=== PATIENT | male | born 1965 | race African-American/Black ===

== ENCOUNTER 2024-06-10 11:45 | Emergency (ER) | payer MEDICAID, OTHER ==
[~2024-06-10] VITALS: Ht 177.8 cm; Wt 72.7 kg
--- NOTE | 2024-06-10 12:33 | ED.PDOC ---
GI ASSESSMENT HPI Comments 58-year-old male presents with a chief complaint of abdominal pain x 4 days with associated constipation. Patients brother mentions that patient has a history of constipation and had a bowel movement yesterday but it was a small amount. Patient denies any nausea and vomiting. Patient mentions that his abdominal pain is nonspecific. Patient is poor historian with history of dementia. Patient is visiting from [place]. Family is at bedside. PMHx: Dementia, Depression, Agitation PSHx: None Reported Allergies: None Reported HPI: Poor Historian. REVIEW OF SYSTEMS: CONSTITUTIONAL: Denies acute: fever, diaphoresis, chills, HEAD: Denies acute: headache, photophobia Eyes: Denies acute: Double vision, vision loss, eye pain, eye discharge. EARS: Denies acute: tinnitus, hearing loss, ear discharge, ear pain, THROAT: Denies acute: sore throat, swelling, difficulty swallowing , pain with swallowing, change in voice. NECK: Denies acute: neck pain, neck swelling, stiff neck. HEART: Denies acute : chest pain, palpitations, LUNGS: Denies acute: SOB, wheezing, cough, hemoptysis ABDOMEN: Denies acute: Nausea, Vomiting, diarrhea, melena , hematemesis, hematochezia SKIN: Denies acute: rash, redness, lesions, itchiness. EXTREMITIES: Denies acute: calf pain, numbness, tingling, weakness, denies pain in extremity. Denies acute: Low back pain. Neuro: Denies acute: focal neurological deficit, motor or sensory focal neurological deficit, tremors, seizure like activity, confusion, dizziness, change in mental status, loss of bowel or bladder function, cauda equina like symptoms. : Denies acute: dysuria, hematuria, flank pain, increase in urinary frequency. PSYCH: Denies acute: hallucination, suicidal ideation, homicidal ideation. PHYSICAL EXAM: General: ---no-----acute distress, awake and alert. Head: normocephalic, atraumatic. Neck: supple, trachea is midline, no swelling. Throat: Normal phonation. Eyes:, no erythema, no purulent discharge, no proptosis, no icterus. Heart: regular rate, regular rhythm, no significant murmur appreciated. Lungs: no apparent respiratory distress, Able to speak in full sentences. No wheezing, no rhonchi, no crackles. No stridors Clear to auscultation bilaterally. Abdomen: Minimal nonspecific upper abdomen tender to palpation, non distended, soft, no guarding, no rebound, + bowel sounds. Neuro: Awake, Alert, oriented to name, self, situation, follows commands GCS=15. Speech is normal. Skin: no petechia, no purpura, no cyanosis, non-pale, not jaundice. Lower extremities: --no - Pitting edema no deformity, no focal swelling, no calf TTP. Makes eye contact. moves all four extremities. Face: no apparent facial droop. ED COURSE: Chief Complaint: Abdominal Pain Time Seen by MD: 12:10 Reviewed Notes: Nurses Notes, Medications, Allergies Information Source: Patient, Friend Mode of Arrival: Ambulatory Past Medical History PAST MEDICAL HISTORY: Dementia, Depression Surgical History: Denies all surgeries Family History Family History: Reviewed,noncontributory to illness Social History Smoker: Non-Smoker Alcohol: Denies ETOH Use Drugs: Denies Drug Use Lives In: Home Was a procedure done? Was a procedure done?: No GI differential Dx Differential Diagnosis: Other (DDX include Diverticulitis, colitis, gastroenteritis, acute abdomen, bowel obstruction, enteritis, constipation, volvulus, , intraAbdominal mass/neoplasm, Inflammatory bowel disease, ischemic bowel, gastroparesis, narcotics abuse/dependency, fecal impaction, low fiber intake.) X-Ray, Labs, Meds, VS Vital Signs Date Time Temp Pulse Resp B/P (MAP) Pulse Ox O2 Delivery O2 Flow Rate FiO2 06/10/24 18:20 98.7 72 16 130/76 (94) 96 98.7 06/10/24 12:11 98.7 86 18 126/53 (77) 99 98.7 Lab Test 06/10/24 15:51 06/10/24 14:09 06/10/24 12:59 Range/Units Troponin I High Sensitivity < 3 L < 3 L < 3 L </=54 ng/L White Blood Count 5.7 4.4-10.8 10^3/uL Red Blood Count 3.20 L 4.5-5.90 10^6/uL Hemoglobin 10.4 L 13.5-17.5 g/dL Hematocrit 30.9 L 41.0-53.0 % Mean Corpuscular Volume 96.6 80.0-100.0 fL Mean Corpuscular Hemoglobin 32.4 H 28.0-32.0 pg Mean Corpuscular Hemoglobin Concent 33.5 32.0-36.0 g/dL Red Cell Distribution Width 14.0 11.8-14.3 % Platelet Count 237 140-450 10^3/uL Mean Platelet Volume 6.5 L 6.9-10.8 fL Neutrophils (%) (Auto) 57.7 37.0-80.0 % Lymphocytes (%) (Auto) 27.7 10.0-50.0 % Monocytes (%) (Auto) 13.4 H 0.0-12.0 % Eosinophils (%) (Auto) 0.7 0.0-7.0 % Basophils (%) (Auto) 0.5 0.0-2.0 % Neutrophils # (Auto) 3.3 1.6-8.6 10 ^3/uL Lymphocytes # (Auto) 1.6 0.4-5.4 10 ^3/uL Monocytes # (Auto) 0.8 0-1.3 10 ^3/uL Eosinophils # (Auto) 0 0-0.8 10 ^3/uL Basophils # (Auto) 0 0-0.2 10 ^3/uL Nucleated Red Blood Cells 0.1 % Sodium Level 141 136-145 mmol/L Potassium Level 4.0 3.5-5.1 mmol/L Chloride Level 109 H 98-107 mmol/L Carbon Dioxide Level 27 20-31 mmol/L Anion Gap 5 5-15 Blood Urea Nitrogen 14 9-23 mg/dL Creatinine 0.99 0.700-1.30 mg/dL Glomerular Filtration Rate Calc 87 >90 mL/min BUN/Creatinine Ratio 14.1 10.0-20.0 Serum Glucose 87 74-106 mg/dL Lactic Acid Level 1.0 0.4-2.0 mmol/L Calcium Level 9.6 8.7-10.4 mg/dL Total Bilirubin 0.4 0.2-1.0 mg/dL Aspartate Amino Transferase (AST) 17 13-40 U/L Alanine Aminotransferase (ALT) 27 7-40 U/L Alkaline Phosphatase 70 46-116 U/L Total Protein 7.1 5.7-8.2 g/dL Albumin 3.8 3.2-4.8 g/dL Lipase 33 12-53 U/L PATIENT: NATHALIA BANSALT: [id number]: [id number] : 1965 LOC: ER ROOM / BED: / AGE / SEX: 58 / M ADM STATUS: REG ER SERVICE 1213 ORDERING PHYSICIAN: MARA NUNEZ DO PROCEDURE(s): ABPL - CT AB PEL WO CON-NO ORAL OR IV REASON: ABD PAIN ORDER NUMBER(s): [id number], ACCESSION NUMBER(s): [id number] Exam: CT CT AB PEL WO CON-NO ORAL OR IV History: ABD PAIN Comparison Study: None available at time of dictation. Technique: Multidetector spiral CT of the abdomen and pelvis was performed from lung bases to pubic symphysis. Imaging was performed without intravenous contrast. Coronal and sagittal multiplanar reformats were obtained from the axial data set by the technologist. Radiation Dose : 1. Abdomen/Pelvis: CTDIvol 5.9 mGy, DLP 308.66 mGy*cm. Findings: Evaluation of vasculature and solid organs is limited due to lack of intravenous contrast use. Lung Bases: Lung bases are clear. Visualized portions of the heart and pericardium are unremarkable. Liver: The liver is normal in size. No focal lesions. Gallbladder and Biliary Tree: The gallbladder is unremarkable No intrahepatic or extrahepatic biliary ductal dilatation. Spleen: Unremarkable Pancreas: The pancreas is grossly unremarkable. Adrenal Glands: Unremarkable Kidneys: Kidneys are unremarkable without calculi or hydronephrosis. GI tract: The stomach is grossly normal in appearance. No evidence of small bowel wall thickening or abnormal dilatation to suggest bowel obstruction. Wall thickening in the rectum with fat stranding. Otherwise there is scattered stool throughout the rest of the colon. The appendix is not visualized, however no inflammatory changes in the right lower quadrant to suggest acute appendicitis. Peritoneum/mesentery/retroperitoneum. No evidence of free intraperitoneal air. N o ascites. No evidence of suspicious lymphadenopathy. Abdominal Wall: Unremarkable. Vasculature: The visualized abdominal aorta is normal in size and caliber. Evaluation of abdominal and pelvic vessels is limited due to lack of intravenous contrast. Urinary Bladder: Grossly unremarkable for degree of distention. Pelvic Organs: Unremarkable Musculoskeletal: No aggressive focal bony lesions, acute fractures or dislocation. Soft tissues: Fat containing left inguinal hernia with fat stranding. IMPRESSION: 1. Wall thickening of the rectum with fat stranding. Findings may reflect proctitis in the appropriate clinical setting. 2. Fat containing left inguinal hernia. Mild fat stranding of the left inguinal hernia. Correlation with patient's symptoms recommended. ATED BY: MARILYN ETIENNE MD DICTATED DATE/TIME: 06/10/241310 SIGNED BY: MARILYN ETIENNE MD SIGNED DATE/TIME: 06/10/241310 Time of 1ST Reevaluation: 12:40 Reevaluation 1ST: Unchanged Time of 2ND Reevaluation: 17:23 (Family/caregivers said that the patient has urinary incontinence. They refused any straight catheterization to obtain urine. They said he already urinated a lot.) Reevaluation 2ND: Improved Patient Education/Counseling: Diagnosis, Treatment Family Education/Counseling: Diagnosis, Treatment Comments Patient presented with the above HPI.---constipation---workup was initiated. patient was found with the above mentioned diagnosis. the following medications were ordered: please refer to order lists of meds and tests obtained by myself Dr. Nunez. Patient ED course and VS have been stabilized. Patient has been reassessed in the ED and remained in a stable condition. Pertinent incidental findings were discussed with the patient and/or family. Patient/family voices understanding and is agreeable with plan. Patient has been observed in the ED adequate length of time to insure improvement/stability. Escalation of care considered: Consideration of escalation to observation or admission Patient was DISCHARGED home in a stable condition. All the reports of any imaging studies that were ordered by myself were reviewed by myself. Departure 1 Departure Time of Disposition: 15:48 Impression: Primary Impression: Abdominal pain Additional Impressions: Proctitis Inguinal hernia Constipation Disposition: HOME / SELF CARE / HOMELESS Condition: Stable Additional Instructions: Additional instructions: You MUST follow-up with your primary care/family doctor in 1 to 2 days. If you are unable to see your primary care/family doctor, please return to our emergency room for re-assessment and re-evaluation in 1 to 2 days. Return to the emergency room here in our facility or to the nearest ER [facility] if your symptoms change or worsen. CONSULTATIONS: you MUST Follow-up for consultation as soon as possible with: -gastroenterology in 1-2 days. Please call for appointment. You MUST call the consultants office yourself to make an appointment. You may need to arrange that through your insurance and/or your primary/family doctor. If you are unable to see the financial services education consultant in 1 to 2 days, you must return to our emergency room (or any other ER of your choice) for re-assessment and re- evaluation. Adequate fluid hydration. Liquid diet in the next 72 hours. Increase fiber intake. Below is a copy of your radiological report for follow up: PATIENT: NATHALIA BANSAL ACCT: [id number] UNIT: [id number] : 1965 LOC: ER ROOM / BED: / AGE / SEX: 58 / M ADM STATUS: REG ER SERVICE 1213 ORDERING PHYSICIAN: MARA NUNEZ DO PROCEDURE(s): ABPL - CT AB PEL WO CON-NO ORAL OR IV REASON: ABD PAIN ORDER NUMBER(s): [id number], ACCESSION NUMBER(s): [id number] Exam: CT CT AB PEL WO CON-NO ORAL OR IV History: ABD PAIN Comparison Study: None available at time of dictation. Technique: Multidetector spiral CT of the abdomen and pelvis was performed from lung bases to pubic symphysis. Imaging was performed without intravenous contrast. Coronal and sagittal multiplanar reformats were obtained from the axial data set by the technologist. Radiation Dose : 1. Abdomen/Pelvis: CTDIvol 5.9 mGy, DLP 308.66 mGy*cm. Findings: Evaluation of vasculature and solid organs is limited due to lack of intravenous contrast use. Lung Bases: Lung bases are clear. Visualized portions of the heart and pericardium are unremarkable. Liver: The liver is normal in size. No focal lesions. Gallbladder and Biliary Tree: The gallbladder is unremarkable No intrahepatic or extrahepatic biliary ductal dilatation. Spleen: Unremarkable Pancreas: The pancreas is grossly unremarkable. Adrenal Glands: Unremarkable Kidneys: Kidneys are unremarkable without calculi or hydronephrosis. GI tract: The stomach is grossly normal in appearance. No evidence of small bowel wall thickening or abnormal dilatation to suggest bowel obstruction. Wall thickening in the rectum with fat stranding. Otherwise there is scattered stool throughout the rest of the colon. The appendix is not visualized, however no inflammatory changes in the right lower quadrant to suggest acute appendicitis. Peritoneum/mesentery/retroperitoneum. No evidence of free intraperitoneal air. No ascites. No evidence of suspicious lymphadenopathy. Abdominal Wall: Unremarkable. Vasculature: The visualized abdominal aorta is normal in size and caliber. Evaluation of abdominal and pelvic vessels is limited due to lack of intravenous contrast. Urinary Bladder: Grossly unremarkable for degree of distention. Pelvic Organs: Unremarkable Musculoskeletal: No aggressive focal bony lesions, acute fractures or dislocation. Soft tissues: Fat containing left inguinal hernia with fat stranding. IMPRESSION: 1. Wall thickening of the rectum with fat stranding. Findings may reflect proc titis in the appropriate clinical setting. 2. Fat containing left inguinal hernia. Mild fat stranding of the left inguinal hernia. Correlation with patient's symptoms recommended. ATED BY: MARILYN ETIENNE MD DICTATED DATE/TIME: 06/10/24 1311 SIGNED BY: MARILYN ETIENNE MD SIGNED DATE/TIME: 06/10/24 1311 Discharged With: Self, Relative, Senior Etl Developer Critical Care Note Critical Care Time?: No I personally scribed for MARA NUNEZ DO ([email or web address]) on 06/10/24 at 12:33. Electronically submitted by Gil Cunningham ([email or web address]). I personally scribed for MARA NUNEZ DO ([email or web address]) on 06/10/24 at 13:20. Electronically submitted by Gil Cunningham ([email or web address]). I personally scribed for MARA NUNEZ DO ([email or web address]) on 06/10/24 at 14:10. Electronically submitted by Gil Cunningham ([email or web address]). MARA NUNEZ DO June 10, 2024 12:33
--- NOTE | 2024-06-10 13:14 | DVH ---
Exam: CT CT AB PEL WO CON-NO ORAL OR IV History: ABD PAIN Comparison Study: None available at time of dictation. Technique: Multidetector spiral CT of the abdomen and pelvis was performed from lung bases to pubic s ymphysis. Imaging was performed without intravenous contrast. Coronal and sagittal multiplanar reform ats were obtained from the axial data set by the technologist. Radiation Dose : 1. Abdomen/Pelvis: CTDIvol 5.9 mGy, DLP 308.66 mGy*cm. Findings: Evaluation of vasculature and solid organs is limited due to lack of intravenous contrast use. Lung Bases: Lung bases are clear. Visualized portions of the heart and pericardium are unremarkable. Liver: The liver is normal in size. No focal lesions. Gallbladder and Biliary Tree: The gallbladder is unremarkable No intrahepatic or extrahepatic biliar y ductal dilatation. Spleen: Unremarkable Pancreas: The pancreas is grossly unremarkable. Adrenal Glands: Unremarkable Kidneys: Kidneys are unremarkable without calculi or hydronephrosis. GI tract: The stomach is grossly normal in appearance. No evidence of small bowel wall thickening or abnormal dilatation to suggest bowel obstruction. Wall thickening in the rectum with fat stranding. O therwise there is scattered stool throughout the rest of the colon. The appendix is not visualized, h owever no inflammatory changes in the right lower quadrant to suggest acute appendicitis. Peritoneum/mesentery/retroperitoneum. No evidence of free intraperitoneal air. No ascites. No evidenc e of suspicious lymphadenopathy. Abdominal Wall: Unremarkable. Vasculature: The visualized abdominal aorta is normal in size and caliber. Evaluation of abdominal a nd pelvic vessels is limited due to lack of intravenous contrast. Urinary Bladder: Grossly unremarkable for degree of distention. Pelvic Organs: Unremarkable Musculoskeletal: No aggressive focal bony lesions, acute fractures or dislocation. Soft tissues: Fat containing left inguinal hernia with fat stranding. IMPRESSION: 1. Wall thickening of the rectum with fat stranding. Findings may reflect proctitis in the appropria te clinical setting. 2. Fat containing left inguinal hernia. Mild fat stranding of the left inguinal hernia. Correlation with patient's symptoms recommended.
[2024-06-10 13:30] LABS: Basophils # (auto) 0 10 ^3/uL (0-0.2); Basophils % (auto) 0.5 % (0.0-2.0); Eosinophils # (auto) 0 10 ^3/uL (0-0.8); Eosinophils % (auto) 0.7 % (0.0-7.0); Hematocrit 30.9 % (41.0-53.0); Hemoglobin 10.4 g/dL (13.5-17.5); Lymphocytes # (auto) 1.6 10 ^3/uL (0.4-5.4); Lymphocytes % (auto) 27.7 % (10.0-50.0); Mean Corpuscular Hemoglobin 32.4 pg (28.0-32.0); Mean Corpuscular Hgb Conc. 33.5 g/dL (32.0-36.0); Mean Corpuscular Volume 96.6 fL (80.0-100.0); Monocytes # (auto) 0.8 10 ^3/uL (0-1.3); Monocytes % (auto) 13.4 % (0.0-12.0); Neutrophils # (auto) 3.3 10 ^3/uL (1.6-8.6); Neutrophils % (auto) 57.7 % (37.0-80.0); Nucleated Red Blood Cells % 0.1 %; Platelet Count (auto) 237 10^3/uL (140-450); White Blood Cell 5.7 10^3/uL (4.4-10.8)
[2024-06-10 13:44] LABS: Alanine Aminotransferase 27 U/L (7-40); Albumin 3.8 g/dL (3.2-4.8); Alkaline Phosphatase 70 U/L (46-116); Anion Gap 5 (5-15); Aspartate Aminotransferase 17 U/L (13-40); BUN/Creatinine Ratio 14.1 (10.0-20.0); Bilirubin, Total 0.4 mg/dL (0.2-1.0); Blood Urea Nitrogen 14 mg/dL (9-23); Calcium 9.6 mg/dL (8.7-10.4); Carbon Dioxide 27 mmol/L (20-31); Glucose 87 mg/dL (74-106); Lipase 33 U/L (12-53); Sodium 141 mmol/L (136-145); Total Protein 7.1 g/dL (5.7-8.2)
[2024-06-10 13:45] LABS: Chloride 109 mmol/L (98-107)
[2024-06-10 18:20] VITALS: BP 130/76; PULSE 72; RESP 16; TEMP 98.7; O2SAT 96
== END 2024-06-10 18:33 | disposition home or self-care (01) ==
LOC: ER 11:45
DX: K40.90 Unilateral inguinal hernia, without obstruction or gangrene, not specified as recurrent (principal); K62.89 Other specified diseases of anus and rectum; K59.00 Constipation, unspecified; F03.911 Unspecified dementia, unspecified severity, with agitation
CPT/HCPCS: 36415; 74176; 80053; 83605; 83690; 84484; 85025

== ENCOUNTER 2024-07-17 15:08 | Emergency (ER) | payer SELFPAY ==
[~2024-07-17] VITALS: Ht 180.3 cm; Wt 75.0 kg
[2024-07-17 15:08] VITALS: TEMP 97.4
--- NOTE | 2024-07-17 15:31 | ED.PDOC ---
CPR-HPI HPI Comments 58 y.o male with PMHx of dementia was pulled out of personal vehicle in ca rdiopulmonary arrest. Brother reports driving with patient in the backseat and noticed he was unresponsive, so continued to drive to our facility. Brother reported an approximate down time of 20 minutes prior to ED arrival. CPR started immediately and ACLS protocols were initiated. Brother reports that the patient had no recent illness or injury. Accu-Chek on arrival was in the 90s. Chief Complaint: CPR Time Seen by MD: 15:06 Reviewed Notes: Nurses Notes, Medications, Allergies Allergies: Coded Allergies: UNOBTAINABLE (Unverified , 07/17/24) Information Source: Relative Mode of Arrival: Carried Timing: Minutes Duration: Total time prior hopital: (20 minutes ) Onset: Unknown Available Hx: Unknown Associated signs and symptoms: Unknown Past Medical History PAST MEDICAL HISTORY: Dementia, Depression Surgical History: Denies all surgeries Family History Family History: Reviewed,noncontributory to illness Social History Smoker: Non-Smoker Alcohol: Denies ETOH Use Drugs: Denies Drug Use Lives In: Home Unable to Obtain due to: Medical Urgency Physical Exam General Appearance: Other (Unresponsive) HEENT: Other (Pupils fixed, lips cyanotic, dry mucous membranes) Neck: Full Range of Motion, Other (Positive JVD) Respiratory: Other (Apneic. Bilateral coarse breath sounds with bagging.) Cardiovascular: No Edema, Other (No palpable pulses or auscultable heart sounds.) Breast Exam: Deferred Gastrointestinal: Soft, Other (Nondistended) Genitalia: Other (Unremarkable) Pelvic: Deferred Rectal: Deferred Extremities: Normal inspection, Normal range of motion, No pedal edema Neurologic: Other (GCS 3) Cerebellar Function: Unable to Test Reflexes: NOT DONE Skin: Cyanosis (Lips), Dry, Normal Color, Other (Cool to the touch) Lymphatic: NOT DONE Was a procedure done? Was a procedure done?: Yes Sedation Sedation?: No Central Line Recorder of insertion practice: Hammer Adjuster Occupation of separator inserter: Attending Physician Indication: Other (Full arrest) Room prepared for procedure: No Hammer Adjuster performed hand hygien: Yes Skin Preparation: Chlorhexidine gluconate Skin preparation completely dr: Yes Insertion site: Right, Femoral Notes Attempted right femoral central venous catheter insertion during CPR. Procedure unsuccessful, as guidewire encountered resistance and could not be advanced. Patient's brother who was at bedside requested CPR/ACLS to be stopped prior to completion of procedure. Intubation Indication: Respiratory Insufficiency Prep: Preoxygenation Pretreated with: Nothing Medicated with: Nothing Intubation Approach: Orotracheal Intubation size: cm (8. Secured at 24 cm at the lip) Informed consent obtained: No Risks/benefits/alt described: No Notes Endotracheal intubation via direct laryngoscopy performed by respiratory therapist under my direct supervision. Equal bilateral breath sounds post intubation. Positive capnometer change. Oxygen saturation 90s post intubation. Differential Dx CPR Differential Diagnosis: Cardiopulmonary arrest, Dysrhythmia, Electrolyte disorder, Heart Block, Myocardial Infarction, Pulmonary Embolus, Respiratory Failure, Other (Intoxication/overdose) X-Ray, Labs, Meds, VS Vital Signs Date Time Temp Pulse Resp B/P (MAP) Pulse Ox O2 Delivery O2 Flow Rate FiO2 07/17/24 16:21 Ambu-Bag 07/17/24 15:08 97.4 97.4 X-Ray, Labs, Meds, VS Comment 58-year-old male with a history of dementia brought in by brother by private car 20 minutes after brother noticed the patient was unresponsive and apneic. Vitals remarkable for rectal temp 97.4. Pulse oximetry 95% on high-flow O2 wit h BVM respirations. Exam remarkable for cyanotic lips, dry mucous membranes, JVD, no spontaneous respirations, no auscultable heart sounds or palpable pulses Rhythm strip independently interpreted by me: Asystole Accu-Chek in the 90s CPR/ACLS was continued. Patient was intubated. Please see procedure note for details. Patient received multiple IV push medications including epinephrine and sodium bicarb. Despite our efforts, patient remained pulseless with asystole on the monitor. About 10 minutes into our code, the patient's brother who was at bedside insisted we discontinue our efforts. The code was terminated and the patient was pronounced at 3:17 p.m.. Time of 1ST Reevaluation: 15:17 Reevaluation 1ST: Patient Education/Counseling: Pt Unresponsive Family Education/Counseling: Diagnosis, Treatment Departure 1 Departure Time of Disposition: 15:17 Impression: Primary Impression: Cardiopulmonary arrest Disposition: 20 Condition: Other () Critical Care Note Critical Care Time?: No Heart Score Heart Score: Heart Score Response (Comments) Value History N/A 0 EKG N/A 0 Age N/A 0 Risk Factors N/A 0 Troponin N/A 0 Total 0 Stability Stability form required: No I personally scribed for ZEE BETANCOURT MD ([email or web address]) on 07/17/24 at 15:31. Electronically submitted by Betariz Stewart ([facility]). ZEE BETANCOURT MD Jul 17, 2024 15:31
--- NOTE | 2024-07-17 16:21 | RESUS ---
CODE BLUE ASSESSSMENT History of Events History of Events: PATIENT BROUGHT IN BY BROTHER DUE TO BEING UNRESPONSIVE. PER PTS BROTHER, THEY WERE DRIVING IN THE CAR AND PT WENT UNRESPONSIVE AND WAS DOWN FOR ABOUT 20 MINUTES TO ARRIVAL. UPON ARRIVAL CPR INITIATED AND DR.AU SOTO BEDSIDE Initial Information Date: Jul 17, 2024 (655) Time: 15:06 Location of Arrest: ER Arrest Witnessed: No CPR started initial time: 15:06 CPR started by whom: Hospital Staff Last seen well: 20 MINUTES PRIOR TO ARRIVAL Type of arrest: Unwitnessed Spontaneous Respirations: No Pulse Present: No Crash Cart Opened and Supplies: Yes Airway Ventilation Breathing at Onset: Assisted Oxygen Delivery Method: Ambu-Bag Artificial Ventilation: Bag/Endo tube Intubation Time: 15:13 Intubation Size: 8.0 cuffed Intubated by: ALEJANDRINA PAYTON Intubation Attempts: 1 Intubated orally: Yes Intubated Nasaly: No Tube secured at: 151 Cricoid pressure done: No CO2 indicator used: No Confirmation: Auscultation Suctioning (Oral/Tracheal): No Comments: ET TUBE SIZE 8.0 AT 24CM AT THE LIP Circulation Circulation #1: Time: 15:14 Blood Pressure Systolic: 70 (3) Blood Pressure Diastolic: 39 Temperature (Fahrenheit): 95.7 Circulation #2: Time: 15:20 Blood Pressure Systolic: 112 Blood Pressure Diastolic: 76 Procedure - IV Procedure - IV #1: IV start time: 15:09 IV Side: Left IV Location: Antecubital IV Catheter Type: Saline Lock IV Placed by BERNARDO HAYES IV Gauge: 20 IV Line Care: Saline Flush Procedure - IV #2: IV Side: Right IV Location: Forarm Posterior IV Catheter Type: Saline Lock IV Placed by FREDDY IV Gauge: 20 Medications & Response Medications and Responses #1: Medication Time: 15:10 ADULT Medications Given ADULT: Epinephrine 1 mg Route of Administration: IV EKG Rhythm: Asystole EKG Rhythm: Asystole Medications and Responses #2: Medication Time: 15:11 ADULT Medications Given ADULT: Sodium Bacarbinate 50 meq Route of Administration: IV EKG Rhythm: Asystole Medications and Responses #3: Medication Time: 15:14 ADULT Medications Given ADULT: Epinephrine 1 mg Route of Administration: IV EKG Rhythm: Asystole EKG Rhythm: Asystole Medications and Responses #4: Medication Time: 15:15 ADULT Medications Given ADULT: Sodium Bacarbinate 50 meq EKG Rhythm: Asystole EKG Rhythm: Asystole Pacing Pacer Pads Applied and Pacing: No Pulse Present with Pacing: No Nurses Notes [place] Coma Scale Eye Opening: None (1) Ava Coma Scale Verbal: None (1) Ava Coma Scale Motor: None (1) Pupil Reaction: Non Reactive EKG Rhythm: Asystole Time Code Ended Time Code Ended: 15:17 Post Arrest Status: Outcome of code: Unsuccessful Patient pronounced by: DR. MEHDI SOTO Time patient pronounced: 15:17 Family notified: Yes Code Team Present: DR.AU SOTO, ESTELLE YOUNGER RN, SACHIN Womack RN, SACHIN Ortez RN, ETHEL HAYES, BERNARDO ALONSO RN, ADIS GUTIERREZ Jul 17, 2024 16:21
== END 2024-07-17 15:17 ==
LOC: ER 15:08
DX: I46.9 Cardiac arrest, cause unspecified (principal); F03.90 Unspecified dementia, unspecified severity, without behavioral disturbance, psychotic disturbance, mood disturbance, and anxiety; F32.A Depression, unspecified; Z79.899 Other long term (current) drug therapy
CPT/HCPCS: 31500; 36556; 82947; 92950